=== PATIENT | male | born 1985 | race American Indian/Alaskan Native ===

== ENCOUNTER 2018-06-14 13:48 | Emergency (ER) | payer SELFPAY ==
[2018-06-14 14:14] VITALS: BP 143/100
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
== END 2018-06-14 16:11 | disposition home or self-care (01) ==
LOC: ED 13:48
DX: S61.412A Laceration without foreign body of left hand, initial encounter (principal); W45.8XXA Other foreign body or object entering through skin, initial encounter; Y93.89 Activity, other specified; Y99.8 Other external cause status; Y92.010 Kitchen of single-family (private) house as the place of occurrence of the external cause; M79.642 Pain in left hand
CPT/HCPCS: 99282

== ENCOUNTER 2019-08-24 14:46 | Emergency (ER) | payer OTHER ==
--- NOTE | 2019-08-24 16:47 | Event Note ---
ED Screening Note Date of service: 08/24/19 Time: 16:43 ED Screening Note: 33 yo male c/o generalized abdominal pain started yesterday. He denies fever nausea and vomiting. Denies any PMH. Last BM this morning last ate yesterday. This initial assessment/diagnostic orders/clinical plan/treatment(s) is/are subject to change based on patients health status, clinical progression and re- assessment by fellow clinical providers in the ED. Further treatment and workup at subsequent clinical providers discretion. Patient/guardian urged not to elope from the ED as their condition may be serious if not clinically assessed and managed. Initial orders include: CBC, CMP Lipase UA
[2019-08-24 17:15] LABS: Bilirubin,Urine NEG (Negative); Blood,Urine NEG (Negative); Color,Urine Yellow (Yellow); Mucus,Urine FEW /HPF; Protein,Urine <15 mg/dL mg/dL (Negative)
[2019-08-24 17:49] LABS: Basophils # (Auto) 0.1 K/mm3 (0.0-0.1); Basophils % (Auto) 0.7 % (0.0-1.8); Eosinophils % (Auto) 0.2 % (0.0-4.3); Hematocrit 45.3 % (35.5-45.6); Hemoglobin 14.7 gm/dl (11.8-15.2); Lymphocytes # (Auto) 1.4 K/mm3 (1.2-5.4); Lymphocytes % (Auto) 16.9 % (13.4-35.0); Mean Corpuscular HGB Conc 33 % (32-34); Mean Corpuscular Volume 85 fl (84-94); Monocytes # (Auto) 0.5 K/mm3 (0.0-0.8); Monocytes % (Auto) 6.4 % (0.0-7.3); Platelet Count 293 K/mm3 (140-440); Red Blood Count 5.33 M/mm3 (3.65-5.03); Red Cell Distribution Width 14.4 % (13.2-15.2)
[2019-08-24 18:06] LABS: Alanine Aminotransferase 15 units/L (7-56); BUN/Creatinine Ratio 11; Blood Urea Nitrogen 9 mg/dL (9-20); Calcium 9.2 mg/dL (8.4-10.2); Hemolysis Index 10
--- NOTE | 2019-08-24 18:50 | Emergency Department Report ---
Vomiting/Diarrhea - HPI Chief Complaint: Abdominal Pain Stated Complaint: COLD SX/STOMACH VIRUS Time Seen by Provider: 08/24/19 17:31 Duration: 4 Days Severity: moderate Nausea/Vomiting Severity: Moderate Diarrhea Severity: None Pain Location: Generalized Pain Severity: Mild Symptoms: Yes Watery Diarrhea, Yes Able to Tolerate Fluids, No Bloody diarrhea, No Fever, No Recent Unusual Foods, No Recent Untreated Water, No Recent use of Antibiotics, No Family w/ Similar Symptoms, No Contacts w/ Similar Symptoms, No Rash, No Hematuria, No Recent URI Symptoms Other History: This is a 33-year-old female presents to emergency room with a diffuse abdominal pain and nausea for 4 days. Patient states initially he thought he had a cold last week which resolved. Patient states 4 days ago he started having abdominal cramps with nausea which progressed to vomiting over the past 3 days. He denies taking any medication for symptomatic relief. He denies fever, chills, chest pain, shortness of breath, vomiting, weakness, diarrhea, myalgia, or headache. ED Review of Systems ROS: Stated complaint: COLD SX/STOMACH VIRUS Other details as noted in HPI Constitutional: denies: chills, fever Respiratory: denies: cough, shortness of breath, wheezing Cardiovascular: denies: chest pain, palpitations Gastrointestinal: abdominal pain, nausea. denies: vomiting, diarrhea Genitourinary: denies: urgency, dysuria Skin: denies: rash, lesions Neurological: denies: headache, weakness, paresthesias Psychiatric: denies: anxiety, depression ED Past Medical Hx - Past Medical History Previous Medical History?: No - Surgical History Past Surgical History?: No - Social History Smoking Status: Never Smoker Substance Use Type: None - Medications Home Medications: Home Medications Medication Instructions Recorded Confirmed Last Taken Type Acetaminophen/Codeine [Tylenol 1 tab PO Q6H PRN #12 tab 06/14/18 Unknown Rx /Codeine # 3 tab] Sulfamethoxazole/Trimethoprim 1 each PO BID #14 tablet 06/14/18 Unknown Rx [Bactrim DS TAB] Ondansetron [Zofran Odt] 4 mg PO Q8HR PRN #15 tab.rapdis 08/24/19 Unknown Rx Vomiting Diarrhea Exam - Exam General: Vital signs noted. No distress. Alert and acting appropriately. HEENT: Yes Moist Mucous Membranes, Yes Rhinorrhea (turbinates congested with clear discharge), No Pharyngeal Erythema, No Pharyngeal Exudates, No Conjuctival Injection, No Frontal Tenderness, No Maxillary Tenderness Neck: No Adenopathy, No Rigidity Lungs: Yes Clear Lung Sounds, Yes Good Air Exchange, No Wheezes, No Stridor, No Cough, No Nasal Flaring, No Retractions, No Use of Accessory Muscles Heart exam: Regular: Yes, Murmur: No, Tachycardia: No Abdomen: Tenderness: No, Peritoneal Signs: No, Distention: No, Hyperactive Bowel sounds: No Skin exam: Rash: No, Edema: No, Normal turgor: Yes Neurologic: Alert and oriented, no deficits. Musculoskeletal: Unremarkable. ED Course Vital Signs 08/24/19 16:42 Temperature 98.5 F Pulse Rate 84 Respiratory 16 Rate Blood Pressure 123/99 O2 Sat by Pulse 100 Oximetry ED Medical Decision Making - Lab Data Result diagrams: 08/24/19 17:28 08/24/19 17:28 Lab Results 08/24/19 08/24/19 08/24/19 Range/Units 16:55 17:28 17:28 WBC 8.5 (4.5-11.0) K/mm3 RBC 5.33 H (3.65-5.03) M/mm3 Hgb 14.7 (11.8-15.2) gm/dl Hct 45.3 (35.5-45.6) % MCV 85 (84-94) fl MCH 28 (28-32) pg MCHC 33 (32-34) % RDW 14.4 (13.2-15.2) % Plt Count 293 (140-440) K/mm3 Lymph % (Auto) 16.9 (13.4-35.0) % [place] % (Auto) 6.4 (0.0-7.3) % Eos % (Auto) 0.2 (0.0-4.3) % Baso % (Auto) 0.7 (0.0-1.8) % Lymph # 1.4 (1.2-5.4) K/mm3 Hamilton # 0.5 (0.0-0.8) K/mm3 Eos # 0.0 (0.0-0.4) K/mm3 Baso # 0.1 (0.0-0.1) K/mm3 Seg Neutrophils % 75.8 H (40.0-70.0) % Seg Neutrophils # 6.5 (1.8-7.7) K/mm3 Sodium 141 (137-145) mmol/L Potassium 4.1 (3.6-5.0) mmol/L Chloride 104.5 (98-107) mmol/L Carbon Dioxide 26 (22-30) mmol/L Anion Gap 15 mmol/L BUN 9 (9-20) mg/dL Creatinine 0.8 (0.8-1.5) mg/dL Estimated GFR > 60 ml/min BUN/Creatinine Ratio 11 % Glucose 88 (75-100) mg/dL Calcium 9.2 (8.4-10.2) mg/dL Total Bilirubin 0.20 (0.1-1.2) mg/dL AST 16 (5-40) units/L ALT 15 (7-56) units/L Alkaline Phosphatase 51 (35-129) units/L Total Protein 7.4 (6.3-8.2) g/dL Albumin 4.0 (3.9-5) g/dL Albumin/Globulin Ratio 1.2 % Lipase 9 L (13-60) units/L Urine Color Yellow (Yellow) Urine Turbidity Clear (Clear) Urine pH 6.0 (5.0-7.0) Ur Specific [place] 1.029 (1.003-1.030) Urine Protein <15 mg/dl (Negative) mg/dL Urine Glucose (UA) Neg (Negative) mg/dL Urine Ketones Neg (Negative) mg/dL Urine Blood Neg (Negative) Urine Nitrite Neg (Negative) Urine Bilirubin Neg (Negative) Urine Urobilinogen 2.0 (<2.0) mg/dL Ur Leukocyte Esterase Neg (Negative) Urine WBC (Auto) 2.0 (0.0-6.0) /HPF Urine RBC (Auto) 1.0 (0.0-6.0) /HPF Urine Mucus Few /HPF - Medical Decision Making This is a 33 y.o. male that presents with abdominal cramping and nausea for 4 days. Patient is stable and was examined by me. Vitals stable. Obtained CMP, CBC, & UA. All unremarkable. No active vomiting while in the ER and tolerating by mouth. Abdomen Nontender to palpation on exam. Plan to start zofran for gastroenteritis. Discussed plan with patient and agreed to plan. No further questions noted by the patient. Discharged home in stable condition. Follow up with PCP in 2-3 days. Critical care attestation.: If time is entered above; I have spent that time in minutes in the direct care of this critically ill patient, excluding procedure time. ED Disposition Clinical Impression: Nausea alone, Abdominal cramping, Gastroenteritis Disposition: TO HOME OR SELFCARE Is pt being admited?: No Condition: Stable Instructions: Gastroenteritis (ED), Acute Nausea and Vomiting (ED) Additional Instructions: Frequent hand washing is important to reduce spread. Prompt disinfection of contaminated surfaces with household chlorine bleach- based mines inspector and washing of soiled clothing and bedding should be advised. If food or water is thought to be contaminated, it should be avoided. Increase fluid intake. Drinks high in sugars such as carbonated soft drinks, fruit juice, and highly sugared liquids should be avoided. Prescriptions: Ondansetron [Zofran Odt] 4 mg PO Q8HR PRN #15 tab.rapdis PRN Reason: Nausea And Vomiting Referrals: [facility] [Outside] - 3-5 Days [facility] [Outside] - 3-5 Days [facility] [Outside] - 3-5 Days Forms: Work/School Release Form(ED) Time of Disposition: 18:54
[2019-08-24 19:08] VITALS: BP 135/81
== END 2019-08-24 19:05 | disposition home or self-care (01) ==
LOC: ED 14:46
DX: K21.9 Gastro-esophageal reflux disease without esophagitis (principal); Z79.899 Other long term (current) drug therapy
CPT/HCPCS: 36415; 80053; 81001; 83690; 85025

== ENCOUNTER 2019-10-09 16:03 | Emergency (ER) | payer OTHER ==
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
[2019-10-09 17:47] VITALS: BP 144/77
== END 2019-10-09 16:55 | disposition left against medical advice (07) ==
LOC: ED 16:03
DX: M54.9 Dorsalgia, unspecified (principal); G89.29 Other chronic pain

== ENCOUNTER 2020-01-17 23:18 | Emergency (ER) | payer SELFPAY ==
[2020-01-17] MEDS ORDERED: TETANUS,DIPHTHERIA TOXOID ADULT 0.5 ML INJ IM ONE (23:25)
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
[2020-01-17] MEDS ORDERED: ONDANSETRON 4 MG/2 ML INJ ONE (23:39)
[2020-01-17] MEDS ORDERED: MORPHINE 4 MG/1 ML INJ ONE (23:39)
[2020-01-17 23:49] LABS: Basophils # (Auto) 0.1 K/mm3 (0.0-0.1); Eosinophils # (Auto) 0.1 K/mm3 (0.0-0.4); Eosinophils % (Auto) 1.9 % (0.0-4.3); Hematocrit 41.8 % (35.5-45.6); Hemoglobin 14.2 gm/dl (11.8-15.2); Lymphocytes # (Auto) 2.4 K/mm3 (1.2-5.4); Lymphocytes % (Auto) 36.2 % (13.4-35.0); Mean Corpuscular HGB Conc 34 % (32-34); Mean Corpuscular Volume 84 fl (84-94); Monocytes # (Auto) 0.8 K/mm3 (0.0-0.8); Monocytes % (Auto) 11.8 % (0.0-7.3); Platelet Count 272 K/mm3 (140-440); Red Blood Count 4.99 M/mm3 (3.65-5.03); Red Cell Distribution Width 13.6 % (13.2-15.2)
[2020-01-17] MEDS ORDERED: MORPHINE 4 MG/1 ML INJ IV ONE (23:50)
[2020-01-17] MEDS ORDERED: ONDANSETRON 4 MG/2 ML INJ IV ONE (23:51)
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
[2020-01-18 00:02] LABS: BUN/Creatinine Ratio 15; Blood Urea Nitrogen 15 mg/dL (9-20); Calcium 9.8 mg/dL (8.4-10.2); Hemolysis Index 64
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
[2020-01-18 13:44] VITALS: BP 135/78
== END 2020-01-18 02:30 | disposition home or self-care (01) ==
LOC: ED 23:18
DX: S71.102A Unspecified open wound, left thigh, initial encounter (principal); Z79.899 Other long term (current) drug therapy; X94.0XXA Assault by shotgun, initial encounter; Y93.89 Activity, other specified; Y92.89 Other specified places as the place of occurrence of the external cause; Y99.8 Other external cause status
CPT/HCPCS: 36415; 73552; 73706; 80048; 85025; 86850; 86900; 86901; 90471; 90714; 96365; 96366; 96375; 99284; J0690; J2270; J2405; Q9967

== ENCOUNTER 2021-04-05 16:27 | Emergency (ER) | payer SELFPAY ==
[2021-04-05 17:48] VITALS: BP 118/67
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
== END 2021-04-05 20:35 | disposition home or self-care (01) ==
LOC: ED 16:27
DX: S29.012A Strain of muscle and tendon of back wall of thorax, initial encounter (principal); V49.49XA Driver injured in collision with other motor vehicles in traffic accident, initial encounter; Y93.89 Activity, other specified; Y92.89 Other specified places as the place of occurrence of the external cause; Y99.8 Other external cause status
CPT/HCPCS: 99282

== ENCOUNTER 2021-04-14 13:57 | Emergency (ER) | payer SELFPAY ==
[2021-04-14 16:27] VITALS: BP 117/76
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
== END 2021-04-14 16:33 | disposition home or self-care (01) ==
LOC: ED 13:57
DX: M54.2 Cervicalgia (principal); M54.5 Low back pain; Z79.899 Other long term (current) drug therapy; V87.7XXD Person injured in collision between other specified motor vehicles (traffic), subsequent encounter
CPT/HCPCS: 99281